=== PATIENT | male | born 1980 | race Caucasian/White ===

== ENCOUNTER 2018-01-07 20:07 | Observation (INO) | payer OTHER ==
[2018-01-07 20:19] LABS: Glucose,Whole Blood 350 mg/dL (75-99)
[2018-01-07] MEDS ORDERED: SODIUM CHLORIDE 0.9% 1,000 ML IV STA (20:36)
[2018-01-07] MEDS ORDERED: SODIUM CHLORIDE 0.9% 2,000 ML IV STA (20:36)
[2018-01-07] MEDS ORDERED: LORazepam 2 MG/ML INJ IV STA ×2 (20:38→22:55)
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
[2018-01-07 21:00] LABS: Appearance,Urine Clear (Clear); Bilirubin,Urine Negative (Negative); Blood,Urine Negative (Negative); Color,Urine Light Yellow; Glucose,Urine (UA) 4+ (Negative); Leukocyte Esterase,Urine Negative (Negative); Nitrite,Urine Negative (Negative); PH, Urine 5.5 (5.0-8.0); Protein,Urine Negative (Negative); Urobilinogen,Urine <2.0 mg/dL (<2.0)
[2018-01-07 21:12] LABS: Ketones,Urine 4+ (Negative)
[2018-01-07 21:33] LABS: Basophils % (A) 0 %; Eosinophils # (A) 0.4 k/uL (0-0.7); Eosinophils % (A) 2 %; HCT 42.9 % (39.0-53.0); HGB 14.3 gm/dL (13.0-17.5); Lymphocytes % (A) 4 %; MCH 29.6 pg (25.0-35.0); MCHC 33.2 g/dL (31.0-37.0); MCV 89.1 fL (80.0-100.0); Monocytes # (A) 1.1 k/uL (0-1.0); Monocytes % (A) 5 %; Neutrophils # (A) 21.6 k/uL (1.3-7.7); Neutrophils % (A) 89 %; Platelet Count 227 k/uL (150-450); RBC 4.82 m/uL (4.30-5.90); RDW 13.5 % (11.5-15.5); WBC 24.3 k/uL (3.8-10.6)
[2018-01-07 21:43] LABS: ALT 29 U/L (21-72); AST 42 U/L (17-59); Albumin 4.2 g/dL (3.5-5.0); Alkaline Phosphatase 77 U/L (38-126); Anion Gap 21 mmol/L; Blood Urea Nitrogen 24 mg/dL (9-20); Calcium 8.3 mg/dL (8.4-10.2); Carbon Dioxide 15 mmol/L (22-30); Chloride 106 mmol/L (98-107); Glucose 320 mg/dL (74-99); Lipase 31 U/L (23-300); Sodium 142 mmol/L (137-145); Total Bilirubin 0.7 mg/dL (0.2-1.3); Total Protein 6.4 g/dL (6.3-8.2)
[2018-01-07 21:45] LABS: VBG PH 7.37 (7.31-7.41)
[2018-01-07] MEDS ORDERED: INSULIN REGULAR 100 UNIT in SODIUM CHLORIDE 0.9% 100 ML IV ONE (22:18)
[2018-01-07 22:46] LABS: Glucose,Whole Blood 335 mg/dL (75-99)
[2018-01-07] MEDS ORDERED: NALOXONE 0.4 MG/ML 1 ML VIAL IV PRN (22:55)
[2018-01-07] MEDS ORDERED: INSULIN REGULAR 100 UNIT in SODIUM CHLORIDE 0.9% 100 ML IV SCH (23:00)
[2018-01-07 23:47] LABS: Glucose,Whole Blood 287 mg/dL (75-99)
[2018-01-08 00:49] LABS: Glucose,Whole Blood 165 mg/dL (75-99)
[2018-01-08 01:40] LABS: Glucose,Whole Blood 150 mg/dL (75-99)
[2018-01-08 02:28] LABS: Anion Gap 16 mmol/L; Blood Urea Nitrogen 21 mg/dL (9-20); Carbon Dioxide 18 mmol/L (22-30); Chloride 112 mmol/L (98-107); Glucose 165 mg/dL (74-99); Phosphorus 2.1 mg/dL (2.5-4.5); Sodium 146 mmol/L (137-145)
[2018-01-08 02:59] LABS: Glucose,Whole Blood 100 mg/dL (75-99)
[2018-01-08 03:54] LABS: Glucose,Whole Blood 85 mg/dL (75-99)
[2018-01-08] MEDS: SODIUM CHLORIDE 0.9% 1,000 ML IV SCH ×3 (04:21→08:52)
[2018-01-08 04:28] LABS: Glucose,Whole Blood 75 mg/dL (75-99)
[2018-01-08] MEDS: ALPRAZolam 0.25 MG TAB PO PRN ×2 (04:30→08:58)
[2018-01-08 05:00] LABS: Glucose,Whole Blood 90 mg/dL (75-99)
[2018-01-08] MEDS: D5-0.45% NACL WITH KCL 20MEQ/L 1,000 ML IV SCH ×3 (05:02→16:34)
[2018-01-08 05:37] LABS: Glucose,Whole Blood 122 mg/dL (75-99)
[2018-01-08 06:05] LABS: Anion Gap 12 mmol/L; Blood Urea Nitrogen 19 mg/dL (9-20); Carbon Dioxide 19 mmol/L (22-30); Chloride 112 mmol/L (98-107); Glucose 140 mg/dL (74-99); Phosphorus 2.6 mg/dL (2.5-4.5); Potassium 4.3 mmol/L (3.5-5.1); Sodium 143 mmol/L (137-145)
[2018-01-08 06:38] LABS: Glucose,Whole Blood 163 mg/dL (75-99)
[2018-01-08 07:32] LABS: Glucose,Whole Blood 185 mg/dL (75-99)
[2018-01-08 08:49] LABS: Glucose,Whole Blood 180 mg/dL (75-99)
[2018-01-08 09:28] LABS: Glucose,Whole Blood 199 mg/dL (75-99)
[2018-01-08 10:27] LABS: Glucose,Whole Blood 181 mg/dL (75-99)
[2018-01-08 10:30] LABS: Hemoglobin A1C 7.4 % (4.0-6.0)
[2018-01-08 10:35] LABS: Anion Gap 12 mmol/L; Blood Urea Nitrogen 16 mg/dL (9-20); Calcium 7.8 mg/dL (8.4-10.2); Carbon Dioxide 21 mmol/L (22-30); Chloride 107 mmol/L (98-107); Glucose 207 mg/dL (74-99); Potassium 4.2 mmol/L (3.5-5.1); Sodium 140 mmol/L (137-145)
[2018-01-08 11:31] LABS: Glucose,Whole Blood 234 mg/dL (75-99)
[2018-01-08 12:45] LABS: Glucose,Whole Blood 222 mg/dL (75-99)
[2018-01-08 13:57] VITALS: BMI 23.6
[2018-01-08 14:03] LABS: Glucose,Whole Blood 201 mg/dL (75-99)
[2018-01-08 15:22] LABS: Glucose,Whole Blood 210 mg/dL (75-99)
[2018-01-08] MEDS ORDERED: LORazepam 2 MG/ML INJ IV STA (16:12)
[2018-01-08] MEDS ORDERED: LORazepam 1 MG TAB PO PRN ×2 (16:12→21:01)
[2018-01-08 16:32] VITALS: RESP 18
[2018-01-08] MEDS ORDERED: INSULIN REGULAR 100 UNIT/ML VIAL IV ONE (16:35)
[2018-01-08] MEDS ORDERED: INSULIN REGULAR 100 UNIT in SODIUM CHLORIDE 0.9% 100 ML IV SCH (17:00)
[2018-01-08 17:21] LABS: Glucose,Whole Blood 225 mg/dL (75-99)
[2018-01-08 17:45] LABS: Anion Gap 12 mmol/L; Blood Urea Nitrogen 12 mg/dL (9-20); Calcium 8.2 mg/dL (8.4-10.2); Carbon Dioxide 21 mmol/L (22-30); Chloride 101 mmol/L (98-107); Glucose 234 mg/dL (74-99); Potassium 4.2 mmol/L (3.5-5.1); Sodium 134 mmol/L (137-145)
[2018-01-08 19:06] LABS: Glucose,Whole Blood 215 mg/dL (75-99)
[2018-01-08] MEDS ORDERED: ONDANSETRON 4 MG/2 ML VIAL IVP PRN (20:02)
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
[2018-01-08 20:22] LABS: Glucose,Whole Blood 230 mg/dL (75-99)
[2018-01-08 20:53] LABS: Glucose,Whole Blood 218 mg/dL (75-99)
[2018-01-08] MEDS: LORazepam 2 MG/ML INJ IV PRN (21:14)
[2018-01-08] MEDS: NICOTINE 21MG/24HR PATCH TRANSDERM SCH (21:14)
[2018-01-08 22:15] LABS: Glucose,Whole Blood 227 mg/dL (75-99)
[2018-01-08] MEDS: traMADol 50 MG TAB PO PRN (22:43)
[2018-01-08 22:44] LABS: Anion Gap 12 mmol/L; Blood Urea Nitrogen 9 mg/dL (9-20); Calcium 8.5 mg/dL (8.4-10.2); Carbon Dioxide 22 mmol/L (22-30); Chloride 101 mmol/L (98-107); Glucose 234 mg/dL (74-99); Sodium 135 mmol/L (137-145)
[2018-01-08 23:01] LABS: Glucose,Whole Blood 204 mg/dL (75-99)
[2018-01-09 00:02] LABS: Glucose,Whole Blood 226 mg/dL (75-99)
[2018-01-09] MEDS: HEPARIN SODIUM,PORCINE 5,000 UNIT/ML 1 ML VIAL SQ SCH ×2 (00:22→08:21)
[2018-01-09 01:06] LABS: Glucose,Whole Blood 239 mg/dL (75-99)
[2018-01-09 02:05] LABS: Glucose,Whole Blood 203 mg/dL (75-99)
[2018-01-09] MEDS: D5-0.45% NACL WITH KCL 20MEQ/L 1,000 ML IV SCH (03:00)
[2018-01-09 03:03] LABS: Glucose,Whole Blood 218 mg/dL (75-99)
[2018-01-09 03:11] LABS: Basophils # (A) 0.1 k/uL (0-0.2); Basophils % (A) 0 %; Eosinophils # (A) 0.2 k/uL (0-0.7); Eosinophils % (A) 2 %; HCT 41.1 % (39.0-53.0); HGB 14.2 gm/dL (13.0-17.5); Lymphocytes # (A) 1.8 k/uL (1.0-4.8); Lymphocytes % (A) 14 %; MCH 30.6 pg (25.0-35.0); MCHC 34.7 g/dL (31.0-37.0); MCV 88.4 fL (80.0-100.0); Mean Platelet Volume 7.1; Monocytes # (A) 0.6 k/uL (0-1.0); Monocytes % (A) 5 %; Neutrophils # (A) 10.4 k/uL (1.3-7.7); Neutrophils % (A) 78 %; Platelet Count 190 k/uL (150-450); RBC 4.65 m/uL (4.30-5.90); RDW 13.9 % (11.5-15.5); WBC 13.3 k/uL (3.8-10.6)
[2018-01-09 03:21] LABS: Anion Gap 10 mmol/L; Blood Urea Nitrogen 7 mg/dL (9-20); Calcium 8.5 mg/dL (8.4-10.2); Carbon Dioxide 24 mmol/L (22-30); Chloride 100 mmol/L (98-107); Glucose 244 mg/dL (74-99); Potassium 4.1 mmol/L (3.5-5.1); Sodium 134 mmol/L (137-145)
[2018-01-09 03:58] LABS: Glucose,Whole Blood 226 mg/dL (75-99)
[2018-01-09] MEDS ORDERED: INSULIN NPH 300 UNIT/3 ML VIAL SQ ONE ×2 (04:37→09:00)
[2018-01-09 05:32] LABS: Glucose,Whole Blood 253 mg/dL (75-99)
[2018-01-09] MEDS: traMADol 50 MG TAB PO PRN ×2 (05:37→10:54)
[2018-01-09 06:10] LABS: Glucose,Whole Blood 266 mg/dL (75-99)
[2018-01-09] MEDS: INSULIN ASPART 100 UNIT/ML 1 ML 10 ML VIAL SQ SCH ×4 (08:20→11:38)
[2018-01-09] MEDS: NICOTINE 21MG/24HR PATCH TRANSDERM SCH (08:21)
[2018-01-09] MEDS: LORazepam 2 MG/ML INJ IV PRN (08:25)
[2018-01-09 11:34] LABS: Glucose,Whole Blood 121 mg/dL (75-99)
[2018-01-09 11:39] VITALS: BP 132/78; PULSE 91; TEMP 97.4
[2018-01-09] MEDS ORDERED: INSULIN DETEMIR 100 UNIT/ML 10 ML VIAL SQ SCH (21:00)
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
== END 2018-01-09 15:39 | disposition home or self-care (01) ==
LOC: EC 20:07 → 6ICU 23:00 → INTOOBSV 23:00 → 6SEL 01-08 15:04 → UNDODISIN 01-09 15:39
PROVIDERS: ADMIT Internal Medicine; ATTEND Internal Medicine
DX: E11.10 Type 2 diabetes mellitus with ketoacidosis without coma (principal); F41.9 Anxiety disorder, unspecified; F32.9 Major depressive disorder, single episode, unspecified; F41.0 Panic disorder [episodic paroxysmal anxiety]; F12.10 Cannabis abuse, uncomplicated; F17.200 Nicotine dependence, unspecified, uncomplicated; Z79.4 Long term (current) use of insulin; Z79.899 Other long term (current) drug therapy; Z88.0 Allergy status to penicillin
CPT/HCPCS: 96376 ×3; 96375; 96361 ×2; 96374; 99285; 36415; 93005; 83930; 80051; 80053; 80048 ×2; 82565; 82803; 82009; 83690; 83735; 84100; 82947; 84520; 85025 ×2; 81003; 83036; G0378 ×4; S4990 ×2; J2060 ×3; J2405